=== PATIENT | female | born 1985 | race Caucasian/White ===

== ENCOUNTER 2020-05-21 00:24 | Outpatient (CLI) | payer OTHER, SELFPAY ==
[2020-05-21 19:17] LABS: SARS-CoV-2 RNA PCR Negative
== END 2020-05-21 00:25 | disposition home or self-care (01) ==
LOC: ANHCOVIDDT 00:24
PROVIDERS: Family Provider Internal Medicine; PCP Family Medicine Sports Medicine; Visit Provider Obstetrics & Gynecology Gynecology
DX: Z01.812 Encounter for preprocedural laboratory examination (principal); Z20.822 Contact with and (suspected) exposure to COVID-19
CPT/HCPCS: C9803; U0003; U0005

== ENCOUNTER 2020-05-21 08:25 | Outpatient (CLI) | payer OTHER, SELFPAY ==
[2020-05-21 08:42] LABS: Hematocrit 41.4 % (37.0-47.0)
[2020-05-21 08:51] LABS: INR 0.9; Partial Thromboplastin Time 27.5 SECONDS (22.3-36.8); Prothrombin Time 12.9 Seconds (11.1-14.7)
[2020-05-21 08:57] LABS: Anion Gap 4 mmol/L (8-16); Blood Urea Nitrogen 12 mg/dL (7-17); Carbon Dioxide 27 mmol/L (22-30); Chloride 105 mmol/L (98-107); Estimated Glomerular Filt Rate > 60; Glucose 116 mg/dL (65-105); Potassium 3.8 mmol/L (3.4-5.0); Sodium 136 mmol/L (137-145)
== END 2020-05-21 08:26 | disposition home or self-care (01) ==
PROVIDERS: Anesthesiology; Family Provider Internal Medicine; PCP Family Medicine Sports Medicine; Visit Provider Obstetrics & Gynecology Gynecology
DX: K76.9 Liver disease, unspecified (principal); Z94.4 Liver transplant status; N92.1 Excessive and frequent menstruation with irregular cycle; Z01.812 Encounter for preprocedural laboratory examination
CPT/HCPCS: 36415; 80048; 85014; 85018; 85610; 85730

== ENCOUNTER 2020-05-24 00:45 | Day surgery (SDC) | payer OTHER, SELFPAY ==
[2020-05-19 17:43] VITALS: BMI 36.6
--- NOTE | 2020-05-24 07:43 | WPDHPUPDATE1 ---
History and Physical Update Update Date/Time: 05/24/20 07:43 History and Physical has been reviewed, including an updated exam of the patient. There are NO changes in the patient's condition. Risks, benefits, and alternatives have been discussed and questions answered. Patient agrees to proceed with procedure.
--- NOTE | 2020-05-24 07:43 | PM.HPGS ---
History of Present Illness History of Present Illness Consent: Risks, benefits, and alternatives have been discussed and questions answered. Patient agrees to proceed with procedure. Chief complaint: Menometrorrhagia Narrative: Kandis Ponce is a 34 year old female with about 6 months of bleeding changes. Has had more irregular pattern and heavier flow lasting up to 10 days. Recommend further work up with D&C hysteroscopy. Reviewed possible pathology as well as risks of infection, bleeding, perforation, and fluid imbalance. Agrees to proceed. 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 Endometriosis determined by laparoscopy Surgical History Surgical History (Updated 05/24/20 @ 08:10 by Merary Woods MD) S/P appendectomy S/P D&C (status post dilation and curettage) 2015 for heavy cycles-benign S/P liver transplant Family History Family History (Updated 11/19/15 @ 23:19 by DOCTOR UNKNOWN) Grandparent Hypertension Diabetes mellitus Father Family history of elevated blood lipids Family history of diabetes mellitus in first degree relative Social History Social History Smoking status: Never smoker Alcohol intake: current Substance use: never Living arrangements: with family Gender identity (if verbalized by the patient): Female Sexual Orientation (if Verbalized by the Patient): Straight or Heterosexual Spiritual care concerns: No Meds Home Medications and Allergies Home Medications Medication Instructions Recorded Confirmed Type citalopram 10 mg PO DAILY 05/19/20 05/19/20 History multivitamin [A To Z Multivitamin] 1 tablet PO DAILY 05/19/20 05/19/20 History tacrolimus 4 mg PO BID 05/19/20 05/19/20 History Allergies Allergy/AdvReac Type Severity Reaction Status Date / Time CYCLOSPORIN Allergy Severe Anaphylaxis Uncoded 05/19/20 17:41 Exam Const: General: cooperative, healthy appearing and comfortable Chest: Chest palpation & inspection: normal inspection of the chest Resp: Effort & Inspection: normal respiratory effort Auscultation: clear to auscultation bilaterally Cardio: Rate: regular rate Rhythm: regular rhythm GI: Inspection: normal to inspection GI Palp: No abdominal tenderness and Yes Other GI palpation findings present (multiple scars) Assessment and Plan Assessment and plan (1) Menorrhagia: Code(s): N92.0 - Excessive and frequent menstruation with regular cycle Status: Acute Assessment and Plan: plan to proceed with hysteroscoppy and D&C
[2020-05-24 08:01] VITALS: BP 115/73; PULSE 69; RESP 14; TEMP 36.5; O2SAT 100
--- NOTE | 2020-05-24 08:17 | WPDANESEPPF ---
Anes - Initial Pre Proc Eval Procedure: Operation Date: 05/24/20 09:45 Proposed Procedures p Hysteroscopy Dilation and Curettage - Merary Woods MD Date/Time: 05/24/20 08:17 Surgeon: Merary Woods MD Pre Op Diagnosis: Menometrorrhagia Patient Data Age: 34 Gender: F Height: 1.65 m Weight: 100 kg Allergies Allergy/AdvReac Type Severity Reaction Status Date / Time cyclosporine Allergy Severe Anaphylaxis Verified 05/24/20 08:12 Home Medications Medication Instructions Recorded Confirmed Type citalopram 10 mg PO DAILY 05/19/20 05/19/20 History multivitamin [A To Z Multivitamin] 1 tablet PO DAILY 05/19/20 05/19/20 History tacrolimus 4 mg PO BID 05/19/20 05/19/20 History Patient hx anesthesia problems: none Family hx anesthesia problems: none [facility] Past Medical History Medical History (Updated 05/24/20 @ 08:22 by Tirso Currie MD) 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 and duct planted into intestine Endometriosis determined by laparoscopy Menorrhagia Surgical History Surgical History (Updated 05/24/20 @ 08:10 by Merary Woods MD) S/P appendectomy S/P D&C (status post dilation and curettage) 2015 for heavy cycles-benign S/P liver transplant Family History Family History (Updated 11/19/15 @ 23:19 by DOCTOR UNKNOWN) Grandparent Hypertension Diabetes mellitus Father Family history of elevated blood lipids Family history of diabetes mellitus in first degree relative Social History Social History Smoking status: Never smoker Alcohol intake: current Substance use: never Living arrangements: with family Gender identity (if verbalized by the patient): Female Sexual Orientation (if Verbalized by the Patient): Straight or Heterosexual Spiritual care concerns: No Anes - Eval Final PreProcedure Day of Procedure 05/24/20 08:17 Patient weight: obese Heart: regular rate and rhythm Lungs: clear to auscultation and normal air movement Airway: Mallampati scale class II Neurological: alert and oriented Last oral intake: >/= 8 hours ASA classification: III Emergent: no Anesthetic plan: proceed Anesthesia type and monitoring: general GIVS and LMA Informed Consent: The patient's anesthetic plan and its attendant risks and benefits were discussed with the patient/family/POA. Questions were solicited and answers provided to the satisfaction of the patient/family/POA.
[2020-05-24] MEDS: ACETAMINOPHEN 500 MG TABLET 1000 MG PO (08:26)
[2020-05-24] MEDS: LACTATED RINGERS 1,000 ML 30 ML IV CONT (08:35)
--- NOTE | 2020-05-24 10:29 | SUR.OPER ---
Hysteroscopy irrigation 1300ML IVNS in and 1130 ML out
[2020-05-24] MEDS: KETOROLAC 30 MG/ML VIAL (*BKC) IV PUSH (10:38)
[2020-05-24 10:39] VITALS: BP 98/65; PULSE 57; RESP 12; O2SAT 98
--- NOTE | 2020-05-24 10:41 | P.OP_ITS ---
Procedure Note - Detailed Date of procedure: 05/24/20 Pre-op diagnosis: Menometrorrhagia Post-op diagnosis: same Procedure performed: D&C hysteroscopy with myosure Description of procedure: The patient was taken to the operating room and placed under anesthesia in the dorsal lithotomy position. She was prepped and draped in usual sterile fashion. The bivalve speculum was placed in the vagina and the cervix is grasped on the anterior lip with a tenaculum. The cervix is injected with 1% lidocaine in each quadrant. The uterus is sounded to 8cm. The cervix is serially dilated with Hegars. The diagnostic hysteroscope was placed and mu ltiple polyps were noted. The MyoSure device is opened and placed. Under direct visualization the polyps are removed with the MyoSure device. All instruments are removed from the uterus. The medium sharp curette is used to curette the endometrium until a good uterine cry was noted in all areas. All instruments are removed, the patient is awake from anesthesia, and taken to recovery in stable condition. Sponge, needles, and instrument count are correct per the OR staff. Anesthesia: MAC and local Surgeon: Merary Woods MD Estimated blood loss (mL): 5 Drains: No Packing: No Pathology: yes (endometrial curettings and shavings) Complications: No immediate complications Condition: stable Disposition: PACU Findings: uterus 8 cm; several polyps noted
[2020-05-24] MEDS: fentaNYL CITRATE INJ (*CRX) 100 MCG/2 ML VIAL 25 MCG IV PUSH (10:51)
[2020-05-24 11:10] VITALS: BP 94/63; PULSE 53
[2020-05-24] MEDS: oxyCODONE HCL (*CRX) 5 MG TAB IR PO (11:13)
[2020-05-24 11:40] VITALS: BP 96/57; PULSE 49
== END 2020-05-24 11:47 | disposition home or self-care (01) ==
PROVIDERS: Family Provider Internal Medicine; PCP Family Medicine Sports Medicine; Visit Provider Obstetrics & Gynecology Gynecology
PROC: 0U5B8ZZ Destruction of Endometrium, Via Natural or Artificial Opening Endoscopic (ICD-10-PCS; CPT 58563; principal; 2020-05-24 09:45)
DX: N92.1 Excessive and frequent menstruation with irregular cycle (principal); N85.01 Benign endometrial hyperplasia
CPT/HCPCS: 58558; 36415; 80048; 85014; 85018; 85610; 85730; 88305; A9270; C9803; J1100; J1885; J2250; J2405; J2704; J3010; J7030; J7120; U0003; U0005

== ENCOUNTER 2023-01-01 11:19 | Emergency (ER) | payer BC, SELFPAY ==
--- NOTE | ~2023-01-01 | XR_ITS ---
EXAMINATION: XR chest 2V DATE: 01/01/2023 13:18 INDICATION: Cough and shortness of breath. TECHNIQUE: Frontal and lateral views of the chest were obtained. COMPARISON: CT abdomen and pelvis 04/28/11 FINDINGS: There is no pneumonia, pleural effusion, or pneumothorax. The heart size is normal. IMPRESSION: 1. No acute cardiopulmonary disease. Reviewed, dictated and finalized at location A.
[2023-01-01 12:05] VITALS: BP 125/109; PULSE 79; RESP 18; TEMP 36.5; O2SAT 100
[2023-01-01 12:15] VITALS: O2SAT 100
[2023-01-01 12:56] LABS: Strep Group A RT-PCR NOT DETECTED (Negative)
[2023-01-01 13:23] LABS: Influenza A QL RT-PCR Negative (Negative); Influenza B QL RT-PCR Negative (Negative); SARS-CoV-2 RNA PCR Negative (Negative)
--- NOTE | 2023-01-01 13:42 | ED.GENADULT ---
HPI - General Adult General Chief complaint: Upper Respiratory Infection Stated complaint: Upper Respiratory congestion Time Seen by Provider: 01/01/23 12:39 History of Present Illness HPI narrative: 37-year-old female history of liver transplant presented the emergency department for evaluation of cough and sore throat that been going on for the past 2 weeks. Patient states her symptoms initially started with a sore throat and over the course of the last week has progressed to a persistent cough. Patient denies any chest pain or shortness of breath. 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 Endometriosis determined by laparoscopy Menorrhagia Surgical History Surgical History (Updated 05/24/20 @ 08:10 by Merary Woods MD) S/P appendectomy S/P D&C (status post dilation and curettage) 2015 for heavy cycles-benign S/P liver transplant Family History Family History (Updated 11/19/15 @ 23:19 by DOCTOR UNKNOWN) Grandparent Hypertension Diabetes mellitus Father Family history of elevated blood lipids Family history of diabetes mellitus in first degree relative Social History Social History Smoking status: Never smoker Alcohol intake: current Substance use: never Living arrangements: with family Gender identity (if verbalized by the patient): Female Sexual Orientation (if Verbalized by the Patient): Straight or Heterosexual Spiritual care concerns: No Exam Narrative: APPEARANCE: Well appearing, no pain, no distress, well-nourished. HEAD: normocephalic, atraumatic. EYES: PERRLA/EOMI, conjunctivae clear. NOSE: Normal no drainage EARS:TMS clear with good light reflex. THROAT: Pharynx clear, no exudate. NECK: Supple. No adenopathy, no masses. RESPIRATORY: Airway patent, respirations nonlabored. Clear to auscultation bilaterally, no rales, rhonchi, wheezing. CARDIOVASCULAR: Regular rate and rhythm without murmurs rubs or gallops. ABDOMINAL: Soft, nontender, nondistended, normal bowel sounds MUSCULOSKELETAL: Moves all extremities. Strength/ROM intact, No edema, No calf tenderness. NEURO: Alert. Cranial nerves II through XII intact. Grossly intact SKIN: Warm, dry. Normal Color Course Course Emergency Course: 37-year-old female presented to ED for evaluation of persistent cough congestion and sore throat. Patient was negative for influenza and COVID. Patient strep throat was negative. Chest x-ray showed no acute cardiopulmonary abnormality. Due to the patient's history of transplant and being on immunosuppressants and the duration of her respiratory symptoms patient was started on antibiotics for possible pneumonia. Patient was started on p.o. Augmentin and azithromycin while in the ED. Patient was updated the results of her labs and imaging and was comfortable with the plan for antibiotic treatment. Patient was also provided Tessalon Perles for cough suppression. Patient also requested a work note for 2 days. Patient was encouraged of close follow-up with her physicians. All questions concerns were addressed. Vital Signs Vital signs: Vital Signs Temperature 97.7 F 01/01/23 12:05 Pulse Rate 79 01/01/23 12:05 Respiratory Rate 18 01/01/23 12:05 Blood Pressure 125/109 H 01/01/23 12:05 Pulse Oximetry 100 0
[2023-01-01] MEDS: AZITHROMYCIN 250 MG TABLET 500 MG PO (13:50)
[2023-01-01] MEDS: AMOXICILLIN/CLAVULANATE K 875-125 MG TAB 1 TABLET PO (13:50)
== END 2023-01-01 13:53 | disposition home or self-care (01) ==
PROVIDERS: Emergency Provider Emergency Medicine; PCP Family Medicine Sports Medicine
DX: R05.9 Cough, unspecified (principal); J02.9 Acute pharyngitis, unspecified; R53.1 Weakness; Z94.4 Liver transplant status; Z20.822 Contact with and (suspected) exposure to COVID-19
CPT/HCPCS: 71046; 87636; 87651; 99283; A9270

== ENCOUNTER 2023-08-02 17:10 | Emergency (ER) | payer BC, SELFPAY ==
[2023-08-02 18:08] VITALS: BP 107/54; PULSE 81; RESP 16; TEMP 36.5; O2SAT 98
[2023-08-02 20:15] VITALS: BP 128/73; PULSE 77
[2023-08-02 20:17] VITALS: BP 119/75; PULSE 83
[2023-08-02 20:18] VITALS: BP 125/85; PULSE 80
[2023-08-02 20:26] VITALS: BP 125/85; PULSE 78; RESP 18; O2SAT 100
[2023-08-02 20:36] LABS: Basophils Percent Auto 0.3 % (0.2-1.2); Eosinophils Absolute Auto 0.3 K/mm3 (0-0.3); Eosinophils Percent Auto 2.9 % (0-4.4); Hematocrit 37.8 % (37.0-47.0); Hemoglobin 12.3 g/dL (12.0-15.0); Immature Granulocyte Absolute 0.03 K/mm3 (0.00-0.031); Immature Granulocyte Percent A 0.3 % (0-0.5); Lymphocytes Absolute Auto 3.55 K/mm3 (0.9-3.2); Lymphocytes Percent Auto 35.8 % (18.3-44.2); Mean Corpuscular HGB Conc 32.5 g/dl (32-36); Mean Corpuscular Hemoglobin 27.5 pg (26-34); Mean Corpuscular Volume 84.6 fl (80-100); Mean Platelet Volume 9.5 fl (7.4-10.4); Monocytes Absolute Auto 0.7 K/mm3 (0.1-0.6); Monocytes Percent Auto 7.3 % (2.6-8.5); Neutrophils Absolute Auto 5.3 K/mm3 (1.3-6.7); Neutrophils Percent Auto 53.4 % (45.5-73.1); Platelet Count Result 225 k/mm3 (150-375); Red Blood Count 4.47 M/mm3 (4.2-5.4); Red Cell Distribution Width 14.3 % (11.5-14.5); White Blood Count 9.9 K/mm3 (4.5-10.0)
[2023-08-02 20:43] LABS: Alanine Aminotransferase 31 U/L (6-35); Albumin Level 4.4 g/dL (3.5-5.1); Alkaline Phosphatase 214 U/L (38-126); Anion Gap 8 mmol/L (4-12); Aspartate Amino Transferase 31 U/L (14-36); Bilirubin,Total 0.9 mg/dL (0.2-1.3); Blood Urea Nitrogen 12 mg/dL (7-17); Calcium 10.2 mg/dL (8.4-10.2); Carbon Dioxide 24 mmol/L (22-30); Chloride 106 mmol/L (98-107); Estimated CRCL calculation 111 ml/min; Estimated Glomerular Filt Rate > 60; Glucose 118 mg/dL (65-110); Potassium 3.3 mmol/L (3.4-5.0); Sodium 138 mmol/L (137-145)
[2023-08-02 20:58] LABS: Partial Thromboplastin Time 29.2 Seconds (22.3-36.8)
--- NOTE | 2023-08-02 22:09 | ED.FEMALEGU ---
HPI - Female Genitourinary General Chief complaint: Vaginal Bleeding Stated complaint: vaginal bleeding Time Seen by Provider: 08/02/23 20:22 Source: patient Mode of arrival: ambulatory Limitations: no limitations History of Present Illness HPI Narrative: This is a 37-year-old female who presents to the ED with chief complaint of heavy vaginal bleeding for the past several days. Patient reports that her period started nearly 1 week ago and bleeding became heavy 2 days ago. Reports she is going through about 1 pad per hour. Reports intermittent lower abdominal cramping but this seems resolved. Patient reports that she has had multiple D&Cs due to abnormal uterine bleeding. Patient reports that she has not had a heavy bleeding episode like this for over a year. Denies syncope, shortness of breath, fevers, chills nausea or vaginal discharge. Denies urinary symptoms. 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 Endometriosis determined by laparoscopy Menorrhagia Surgical History Surgical History (Updated 05/24/20 @ 08:10 by Merary Woods MD) S/P appendectomy S/P D&C (status post dilation and curettage) 2015 for heavy cycles-benign S/P liver transplant Family History Family History (Updated 11/19/15 @ 23:19 by DOCTOR UNKNOWN) Grandparent Hypertension Diabetes mellitus Father Family history of elevated blood lipids Family history of diabetes mellitus in first degree relative Social History Social History Smoking status: Never smoker Alcohol intake: current Substance use: never Living arrangements: with family Gender identity (if verbalized by the patient): Female Sexual Orientation (if Verbalized by the Patient): Straight or Heterosexual Spiritual care concerns: No Exam Narrative: GENERAL: Well-appearing, well-nourished, and in no acute distress. HEAD: Normocephalic, atraumatic. EYES: PERRLA and EOMI. ENT: Nares clear, no rhinorrhea or epistaxis. Mucous membranes moist. Oropharynx without tonsillar hypertrophy exudate or other lesions. NECK: Supple. No adenopathy or masses. CHEST: No respiratory distress. Clear to auscultation. No wheezes rales or rhonchi HEART: Regular rate and rhythm. No murmur heard. Normal peripheral pulses. ABDOMEN: Soft, nontender, nondistended, normal active bowel sounds. MSK: Normal range of motion. No edema. SKIN: Warm, dry, no rash. NEURO: Alert and oriented x3. No focal deficits. PSYCH: Normal mood and affect. Course Vital Signs Vital signs: Vital Signs Temperature 97.7 F 08/02/23 18:08 Pulse Rate 81 08/02/23 18:08 Respiratory Rate 16 08/02/23 18:08 Blood Pressure 107/54 L 08/02/23 18:08 Pulse Oximetry 98 08/02/23 18:08 Temperature 97.7 F 08/02/23 18:08 Pulse Rate 78 08/02/23 20:26 Respiratory Rate 18 08/02/23 20:26 Blood Pressure 125/85 08/02/23 20:26 Pulse Oximetry 100 08/02/23 20:26 MDM - Female Genitourinary MDM Narrative Medical decision making narrative: This is a 37-year-old female who presents to the ED with chief complaint of heavy menstrual bleeding. She is here at the recommendation of her doctor to get blood work checked. Vitals are normal. Exam is benign. Lab work shows normal CBC. CMP shows slightly elevated alk-phos but otherwise unremarkable. Coags are
== END 2023-08-02 22:32 | disposition home or self-care (01) ==
PROVIDERS: Emergency Medicine; Emergency Provider Physician Assistant; PCP Family Medicine Sports Medicine
DX: N93.9 Abnormal uterine and vaginal bleeding, unspecified (principal); N80.9 Endometriosis, unspecified; Z94.4 Liver transplant status
CPT/HCPCS: 36415; 80053; 85025; 85610; 85730; 99284

== ENCOUNTER 2023-11-08 21:48 | Emergency (ER) | payer BC, SELFPAY ==
--- NOTE | ~2023-11-08 | CT_ITS ---
CT of the Abdomen and Pelvis: Indication: Abdominal pain Technique: 2.5 mm axial scans were obtained through the abdomen and pelvis following intravenous adm inistration of 100 cc of Omnipaque 350. Dose reduction technique was used on this scan by utilizing a utomated exposure control and iterative reconstruction technique. The dose-length product (DLP) was 1 559.32 mGy-cm. Findings: Scans through the lung bases are unremarkable. The liver, spleen, pancreas, and adrenal glands are within normal limits. 4 mm nonobstructing right r enal stone present. There are 1.5 cm and 1.3 cm left renal lesions, which are not simple cysts by Willie nsfield units (axial images 94, 96). Gallbladder is absent. No evidence of aortic aneurysm. No lymph adenopathy. No bowel obstruction or bowel wall thickening. There is no evidence to suggest acute appendicitis. 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 Images through the pelvis were performed. Urinary bladder unremarkable. 3.9 cm right adnexal cyst pre sent. 3.1 cm left adnexal cyst present. No ascites. Impression: Bilateral adnexal cysts, as detailed above. 2 indeterminate left renal lesions, as detailed above. Follow-up nonemergent pre and postcontrast MR recommended to correlate for hyperdense cyst versus solid lesions. 4 mm nonobstructing right renal stone. Reviewed, dictated and finalized at [facility]. Impression: Bilateral adnexal cysts, as detailed above. 2 indeterminate left renal lesions, as detailed above. Follow-up nonemergent pr e and postcontrast MR recommended to correlate for hyperdense cyst versus solid lesions. 4 mm nonobstructing right renal stone.
[2023-11-08 22:01] VITALS: BP 131/89; PULSE 76; RESP 16; TEMP 36.7; O2SAT 99
[2023-11-08 22:26] LABS: Basophils Percent Auto 0.4 % (0.2-1.2); Eosinophils Absolute Auto 0.2 K/mm3 (0-0.3); Eosinophils Percent Auto 1.7 % (0-4.4); Hematocrit 40.5 % (37.0-47.0); Hemoglobin 13.2 g/dL (12.0-15.0); Immature Granulocyte Absolute 0.03 K/mm3 (0.00-0.031); Immature Granulocyte Percent A 0.3 % (0-0.5); Lymphocytes Percent Auto 22.3 % (18.3-44.2); Mean Corpuscular HGB Conc 32.6 g/dl (32-36); Mean Corpuscular Hemoglobin 27.6 pg (26-34); Mean Corpuscular Volume 84.7 fl (80-100); Mean Platelet Volume 9.2 fl (7.4-10.4); Monocytes Absolute Auto 0.8 K/mm3 (0.1-0.6); Monocytes Percent Auto 8.7 % (2.6-8.5); Neutrophils Absolute Auto 6.3 K/mm3 (1.3-6.7); Neutrophils Percent Auto 66.6 % (45.5-73.1); Platelet Count Result 261 k/mm3 (150-375); Red Blood Count 4.78 M/mm3 (4.2-5.4); Red Cell Distribution Width 14.4 % (11.5-14.5); White Blood Count 9.4 K/mm3 (4.5-10.0)
[2023-11-08 22:32] LABS: Alanine Aminotransferase 31 U/L (6-35); Albumin Level 4.5 g/dL (3.5-5.1); Alkaline Phosphatase 211 U/L (38-126); Anion Gap 10 mmol/L (4-12); Aspartate Amino Transferase 28 U/L (14-36); Bilirubin,Total 0.9 mg/dL (0.2-1.3); Blood Urea Nitrogen 10 mg/dL (7-17); Calcium 9.4 mg/dL (8.4-10.2); Carbon Dioxide 25 mmol/L (22-30); Chloride 100 mmol/L (98-107); Estimated CRCL calculation 131 ml/min; Estimated Glomerular Filt Rate > 60; Glucose 86 mg/dL (65-110); Lipase 92 U/L (23-300); Potassium 3.9 mmol/L (3.4-5.0); Sodium 135 mmol/L (137-145)
[2023-11-08 23:00] VITALS: BP 117/72; PULSE 71; RESP 18; TEMP 36.6; O2SAT 98
--- NOTE | 2023-11-08 23:10 | ED.GENADULT ---
HPI - General Adult General Chief complaint: Nausea/Vomiting/Diarrhea Stated complaint: vomiting Time Seen by Provider: 11/08/23 22:54 History of Present Illness HPI narrative: patient 37-year-old female who presents emergency department with chief complaint of nausea vomiting. Patient reports that she has prior history of a liver transplant. Patient also has been on a weight loss injection and started it back yesterday patient reports he has been unable to keep anything down for the last 24 hours reports she does have some discomfort in her abdomen the patient denies fever denies blood in her vomit denies blood in her stool. The patient reports that her transplant was done in the in [place] but is followed by the hepatology service at [place]. Related Data Home Medications Medication Instructions Recorded Confirmed citalopram 10 mg tablet 10 mg PO DAILY 05/19/20 05/24/20 multivitamin 1 tablet PO DAILY 05/19/20 05/24/20 tacrolimus 4 mg tablet,extended 4 mg PO BID 05/19/20 05/24/20 release 24 hr alprazolam 0.5 mg tablet mg 11/08/23 citalopram 40 mg tablet mg 11/08/23 lisdexamfetamine 30 mg capsule mg 11/08/23 tacrolimus 0.5 mg capsule, mg 11/08/23 immediate-release tramadol 50 mg tablet mg 11/08/23 Allergies Allergy/AdvReac Type Severity Reaction Status Date / Time cyclosporine Allergy Severe Anaphylaxis Verified 11/08/23 22:04 Review of Systems Review of Systems: A 10 system review of systems was completed on the patient and is negative except for what is stated in the HPI. Nursing and ancillary documentation was reviewed. 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 and duct planted into intestine Endometriosis determined by laparoscopy Menorrhagia Surgical History Surgical History S/P appendectomy S/P D&C (status post dilation and curettage) 2015 for heavy cycles-benign S/P liver transplant Family History Family History Grandparent Hypertension Diabetes mellitus Father Family history of elevated blood lipids Family history of diabetes mellitus in first degree relative Social History Social History Smoking status: Never smoker Alcohol intake: current Substance use: never Living arrangements: with family Gender identity (if verbalized by the patient): Female Sexual Orientation (if Verbalized by the Patient): Straight or Heterosexual Spiritual care concerns: No Exam Narrative: GENERAL: Well-appearing, well-nourished, and in no acute distress. HEAD: Normocephalic, atraumatic. EYES: PERRLA and EOMI. ENT: Nares clear, no rhinorrhea or epistaxis. Mucous membranes moist. NECK: Supple. CHEST: Clear to auscultation. No respiratory distress. HEART: Regular rate and rhythm. No murmur heard. Normal peripheral pulses. ABDOMEN: Soft, Mild diffuse tenderness throughout the abdomen, nondistended, normal active bowel sounds. EXTREMITIES: Normal range of motion. No edema. SKIN: Warm, dry, no rash. NEURO: No focal deficits. Alert and oriented x3. PSYCH: Normal mood and affect. Course Vital Signs Vital signs: Vital Signs Temperature 36.7 C 11/08/23 22:01 Pulse Rate 76 11/08/23 22:01 Respiratory Rate 16 11/08/23 22:01 Blood Pressure 131/89 11/08/23 22:01 Pulse Oximetry 99 11/08/23 22:01 Oxygen Delivery Room Air 11/08/23 22:01 Temperature 36.6 C 11/08/23 23:00 Pulse Rate 71 11/08/23 23:00 Respiratory Rate 18 11/08/23 23:00 Blood Pressure 117/72 11/08/23 23:00 Pulse Oximetry 98 11/08/23 23:00 Oxygen Delivery Room Air 11/08/23 22:01 Medical Decision Making MDM Narrative Medical decision making narr
[2023-11-08 23:16] LABS: Appearance Urine Turbid (Clear); Bacteria Urine None Seen /hpf; Bilirubin Urine Negative (Negative); Blood Urine 2+ (Negative); Color Urine Yellow (Yellow); Glucose Urine UA Negative (Negative); Ketones Urine Trace mg/dL (Negative); Leukocyte Esterase Ur Negative LEU/UL (Negative); Nitrate Urine Negative (Negative); Non Pathogenic Casts 0-2; Protein Urine Trace mg/dL (Negative); RBC Urine >100 /hpf (0-2); Squamous Epithelial Cell Urine Occasional /hpf (Few); WBC Urine 0-5 /hpf (0-3)
[2023-11-08 23:18] LABS: Add Urine Microscopic? YES
[2023-11-08] MEDS: SODIUM CHLORIDE 0.9% IV 1,000 ML 999 ML IV CONT (23:21)
[2023-11-08] MEDS: diphenhydrAMINE HCl INJ 50 MG/ML VIAL 25 MG IV PUSH (23:21)
[2023-11-08] MEDS: PROCHLORPERAZINE EDISYLATE 10 MG/2 ML VIAL IV PUSH (23:21)
== END 2023-11-09 03:46 | disposition home or self-care (01) ==
PROVIDERS: Emergency Provider Emergency Medicine; PCP Family Medicine Sports Medicine
DX: R11.2 Nausea with vomiting, unspecified (principal); N80.9 Endometriosis, unspecified; Z94.4 Liver transplant status; Z79.899 Other long term (current) drug therapy; N28.9 Disorder of kidney and ureter, unspecified; N20.0 Calculus of kidney; N94.89 Other specified conditions associated with female genital organs and menstrual cycle
CPT/HCPCS: 36415; 74177; 80053; 81001; 81025; 83690; 85025; 96361; 96374; 96375; 99284; J0780; J1200; J7030; Q9967

== ENCOUNTER 2023-12-04 13:41 | Emergency (ER) | payer BC, SELFPAY ==
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
[2023-12-04] MEDS: SILVER SULFADIAZINE 1% CR 50 GM JAR (*BKC) 1 APPLIC TOPICAL (15:15)
== END 2023-12-04 15:18 | disposition home or self-care (01) ==
PROVIDERS: Emergency Provider Nurse Practitioner Family; PCP Family Medicine Sports Medicine
DX: L55.1 Sunburn of second degree (principal); N80.9 Endometriosis, unspecified; Z94.4 Liver transplant status
CPT/HCPCS: 99213; A9270; G0463